=== PATIENT | male | born 1955 | race African-American/Black ===

== ENCOUNTER 2017-05-06 17:50 | Emergency (ER) | payer MEDICAID ==
--- NOTE | 2017-05-06 20:44 | ED Physician Documentation ---
History of Present Illness - Stated complaint Stated Complaint: DIZZY - Chief complaint Chief Complaint: Neuro - History obtained from History obtained from: Patient - History of Present Illness Timing: How many days ago (2) Pain level max: 0 Pain level now: 0 Improved by: rest, lying still Worsened by: no apparent inciting or exacerbating factors; sometimes comes on with ambulating, or the action of standing or sitting, but not enough that it seems clearly causative. Episodes occur as often at rest Review of Systems Constitutional: denies: Fever Eyes: reports: Reviewed and negative Ears: reports: Reviewed and negative Cardiac: reports: Reviewed and negative Respiratory: reports: Reviewed and negative GI: reports: Reviewed and negative Neurologic: reports: Reviewed and negative PD PAST MEDICAL HISTORY - Past Medical History Past Medical History: Yes Cardiovascular: High cholesterol Endocrine/Autoimmune: Type 2 diabetes - Past Surgical History Past Surgical History: Yes Ortho: Knee replacement - Present Medications Home Medications: Ambulatory Orders Medication Instructions Recorded Confirmed Aspirin 81 mg PO DAILY 05/06/17 05/06/17 Atorvastatin [Lipitor] 80 mg PO DAILY 05/06/17 05/06/17 Insulin Aspart [NovoLOG] 100 units SQ 05/06/17 Lisinopril/Hydrochlorothiazide 1 tab PO DAILY 05/06/17 05/06/17 [Lisinopril-Hctz 20-25 mg Tab] Meclizine HCl 12.5 - 25 mg PO Q6HR PRN #20 tablet 05/06/17 Tujeo 35 units SQ DAILY PM 05/06/17 - Allergies Allergies/Adverse Reactions: Allergies Allergy/AdvReac Type Severity Reaction Status Date / Time metformin AdvReac Unknown Verified 05/06/17 17:59 - Social History Does the pt smoke?: No Smoking Status: Never smoker Does the pt drink ETOH?: Yes ETOH Use: Wine Does the pt have substance abuse?: No - Immunizations Immunizations are current?: Yes - POLST Patient has POLST: No PD ED PE NORMAL - Vitals Vital signs reviewed: Yes - General General: Alert and oriented X 3, No acute distress, Well developed/nourished - HEENT HEENT: PERRL, EOMI, Moist mucous membranes - Neck Neck: Supple, no meningeal sign - Cardiac Cardiac: RRR, No murmur - Respiratory Respiratory: No respiratory distress, Clear bilaterally - Abdomen Abdomen: Soft, Non tender - Neuro Neuro: Alert and oriented X 3, processing technician 2-12 intact, No motor deficit (5/5 biateral check totaler, dorsi/plantarflexion), No sensory deficit, Normal speech, Other (2+/4 bilateral DTR (patella, bicep). ) Results - Vitals Vitals: Vital Signs - 24 hr 05/06/17 05/06/17 05/06/17 17:55 19:40 20:47 Temperature 36.7 C Heart Rate 78 75 96 Respiratory 16 18 16 Rate Blood Pressure 133/81 H 135/90 H 157/95 H O2 Saturation 99 100 97 05/06/17 21:49 Temperature Heart Rate 77 Respiratory 17 Rate Blood Pressure 139/85 H O2 Saturation 100 Oxygen O2 Source Room air - EKG (time done) No standard instances Rate: Rate (enter#) (77) Rhythm: NSR [place]: LAD Intervals: Normal [place] QRS: Normal Ischemia: Normal ST segments, Q waves (III, aVF) - Labs Labs: Laboratory Tests 05/06/17 05/06/17 21:05 21:05 WBC 6.2 RBC 4.94 Hgb 14.7 Hct 44.2 MCV 89.4 MCH 29.7 MCHC 33.2 RDW 14.5 Plt Count 190 MPV 9.0 Neut # 3.2 Lymph # 2.2 [place] # 0.6 Eos # 0.1 Baso # 0.0 Absolute Nucleated RBC 0.00 Nucleated RBCs 0.0 Sodium 138 Potassium 3.6 Chloride 102 Carbon Dioxide 29 Anion Gap 7.0 BUN 15 Creatinine 1.2 Estimated GFR (MDRD) 75 L Glucose 172 H Calcium 9.7 - Rads (name of study) CT head Radiology: Prelim report reviewed, See rad report PD MEDICAL DECISION MAKING - ED course Complexity details: reviewed results, re-evaluated patient, considered differential, d/w patient Departure - Departure Disposition: 01 Home, Self Care Clinical Impression: Dizziness Condition: Good Instructions: ED Dizziness [facility] Follow-Up: NOHELIA LITTLE MD [Primary Care Provider] - Prescriptions: Meclizine HCl 12.5 - 25 mg PO Q6HR PRN #20 tablet PRN Reason: Vertigo Discharge Date/Time: 05/06/17 22:18
[2017-05-06] MEDS ORDERED: MECLIZINE 12.5 MG TABLET PO STA (21:04)
[2017-05-06 21:14] LABS: BASOPHILS % (AUTO) 0.8 %; EOSINOPHILS # (AUTO) 0.1 10^3/uL (0.0-0.7); EOSINOPHILS % (AUTO) 2.4 %; HCT - HEMATOCRIT 44.2 % (42.0-52.0); HGB - HEMOGLOBIN 14.7 g/dL (14.0-18.0); LYMPHOCYTES # (AUTO) 2.2 10^3/uL (1.5-3.5); LYMPHOCYTES % (AUTO) 35.1 %; MEAN CORPUSCULAR HEMOGLOBIN 29.7 pg (27.0-31.0); MEAN CORPUSCULAR HGB CONC 33.2 g/dL (32.0-36.0); MEAN CORPUSCULAR VOLUME 89.4 fL (80.0-94.0); MONOCYTES # (AUTO) 0.6 10^3/uL (0.0-1.0); MONOCYTES % (AUTO) 9.5 %; NEUTROPHILS # (AUTO) 3.2 10^3/uL (1.5-6.6); NEUTROPHILS % (AUTO) 52.2 %; RED BLOOD COUNT 4.94 10^6/uL (4.70-6.10); RED CELL DISTRIBUTION WIDTH 14.5 % (12.0-15.0); UNCORRECTED WHITE BLOOD COUNT 6.2 x10^3/uL; WHITE BLOOD COUNT 6.2 x10^3/uL (4.8-10.8)
[2017-05-06 21:20] LABS: CALCIUM 9.7 mg/dL (8.5-10.3); CREATININE 1.2 mg/dL (0.6-1.2); POTASSIUM 3.6 mmol/L (3.5-5.0)
[2017-05-06] MEDS ORDERED: MECLIZINE 12.5 MG TABLET PO ONE (21:20)
--- NOTE | 2017-05-06 21:47 | CT Preliminary Report ---
Exam: CT Head W/O IMPRESSION: Normal head CT. [facility] SITE ID: [id number]
[2017-05-06 21:52] VITALS: BP 139/85
--- NOTE | 2017-05-06 21:58 | CT Report ---
EXAM: CT HEAD EXAM DATE: 05/06/2017 09:24 PM. CLINICAL HISTORY: Dizziness. COMPARISON: None. TECHNIQUE: Multiaxial CT images were obtained from the foramen magnum to the vertex. IV contrast: Non e. Reformats: Coronal. In accordance with CT protocol optimization, one or more of the following dose reduction techniques w ere utilized for this exam: automated exposure control, adjustment of mA and/or KV based on patient s ize, or use of iterative reconstructive technique. FINDINGS: Parenchyma: No intraparenchymal hemorrhage. No evidence of mass, midline shift, or CT findings of inf arction. Still-white differentiation is distinct. Extraaxial Spaces: Normal for age. No subdural or epidural collections identified. Ventricles: Normal in size and position. Sinuses: Imaged paranasal sinuses, orbits, and mastoids show no significant abnormality. Bones: No evidence of fracture or calvarial defect. Other: None. IMPRESSION: Normal head CT. [facility] Referring Provider Line: [phone] SITE ID: [id number]
== END 2017-05-06 22:18 | disposition home or self-care (01) ==
LOC: ED 17:50
DX: R42 Dizziness and giddiness (principal); E78.00 Pure hypercholesterolemia, unspecified; E11.9 Type 2 diabetes mellitus without complications; Z79.4 Long term (current) use of insulin; Z79.82 Long term (current) use of aspirin
CPT/HCPCS: 36415; 70450; 80048; 85025; 93005; 99283; 99284; A9270

== ENCOUNTER 2017-07-03 08:50 | Emergency (ER) | payer MEDICAID ==
[2017-07-03 08:57] VITALS: BP 164/92
[2017-07-03] MEDS ORDERED: DEXAMETHASONE 10 MG/ML VIAL PO STA (09:40)
--- NOTE | 2017-07-03 09:42 | ED Physician Documentation ---
History of Present Illness - Stated complaint Stated Complaint: L FOOT PX - Chief complaint Chief Complaint: Ext Problem - History obtained from History obtained from: Patient - History of Present Illness Timing: Last night - Additonal information Additional information: 61-year-old diabetic male with a history of gout has recently taken a plane trip and arrived in back in [place] at 2 AM and spent the night pacing in a hotel lobby. He states that he developed pain in the ball of the foot on the left side. This was severe lancinating pain with a background pain as well. He states the pain was so severe that the only relief he got was when he was up and walking around. He noted the foot to be itchy and noted that if he scratched it he got temporary relief of his pain. He did not have any blistering of his foot or any erythema or swelling. He did not injure the foot itself. He has had gout previously and he recognizes gout as an exquisite pain as opposed to a lancinating pain and he has no pain to movement of the joint and no swelling of the joint. He has had a cough and sore throat which is developed over the past week and he states the cough has been severe at times. He has had sweats but no fever. Review of Systems Constitutional: reports: Myalgias, Fatigue, Sweats. denies: Fever Eyes: denies: Decreased vision Ears: denies: Ear pain Nose: reports: Rhinorrhea / runny nose, Congestion Throat: reports: Sore throat Cardiac: denies: Chest pain / pressure, Palpitations Respiratory: reports: Cough. denies: Dyspnea GI: denies: Abdominal Pain, Nausea, Vomiting : denies: Dysuria, Frequency Skin: denies: Rash Musculoskeletal: reports: Extremity pain, Joint pain. denies: Neck pain, Back pain, Extremity swelling, Joint swelling, Pain with weight bearing Neurologic: denies: Generalized weakness, Focal weakness, Numbness PD PAST MEDICAL HISTORY - Past Medical History Past Medical History: Yes Cardiovascular: Hypertension, High cholesterol Endocrine/Autoimmune: Type 2 diabetes - Past Surgical History Past Surgical History: Yes Ortho: Knee replacement - Present Medications Home Medications: Ambulatory Orders Medication Instructions Recorded Confirmed Aspirin 81 mg PO DAILY 05/06/17 07/03/17 Atorvastatin [Lipitor] 80 mg PO DAILY 05/06/17 07/03/17 Insulin Aspart [NovoLOG] 100 units SQ DAILY 05/06/17 07/03/17 Lisinopril/Hydrochlorothiazide 1 tab PO DAILY 05/06/17 07/03/17 [Lisinopril-Hctz 20-25 mg Tab] Tujeo 35 units SQ DAILY PM 05/06/17 07/03/17 Azithromycin [Zithromax] 250 mg PO DAILY #6 tablet 07/03/17 Gabapentin [Neurontin] 100 mg PO TID PRN #30 capsule 07/03/17 - Allergies Allergies/Adverse Reactions: Allergies Allergy/AdvReac Type Severity Reaction Status Date / Time metformin AdvReac Unknown Verified 05/06/17 17:59 - Social History Does the pt smoke?: No Smoking Status: Never smoker Does the pt drink ETOH?: Yes Does the pt have substance abuse?: No - Immunizations Immunizations are current?: Yes - POLST Patient has POLST: No PD ED PE NORMAL - Vitals Vital signs reviewed: Yes (Hypertensive) - General General: Alert and oriented X 3, No acute distress, Well developed/nourished - HEENT HEENT: Atraumatic, PERRL, EOMI, Other (both TM's are erythematous with rounding of the landmarks. The pharynx is with mild swelling and erythema) - Neck Neck: Supple, no meningeal sign, No bony TTP - Cardiac Cardiac: RRR, No murmur - Respiratory Respiratory: No respiratory distress, Clear bilaterally - Abdomen Abdomen: Soft, Non tender - Back Back: No CVA TTP, No spinal TTP - Derm Derm: Normal color, Warm and dry, No rash - Extremities Extremities: No deformity, No tenderness to palpate, Normal ROM s pain, No edema , No calf tenderness / cord, Other (There is no erythema or swelling in the foot or ankle. There is no tenderness on exam this morning. ) - Neuro Neuro: Alert and oriented X 3, No motor deficit, No sensory deficit, Normal speech - Psych Psych: Normal mood, Normal affect Results - Vitals Vitals: Vital Signs - 24 hr 07/03/17 08:55 Temperature 37.0 C Heart Rate 84 Respiratory 18 Rate Blood Pressure 164/92 H O2 Saturation 97 Oxygen O2 Source Room air PD MEDICAL DECISION MAKING - ED course Complexity details: reviewed old records, reviewed results, re-evaluated patient , considered differential, d/w patient, d/w family ED course: 61-year-old diabetic male has developed severe left foot pain that I suspect may be related to sciatica. At the time of evaluation in the emergency department patient is sitting on the gurney and is pain-free. He is quite surprised that his pain is completely resolved and has not come back in the time that he has been here. In route to the hospital he was in agonizing pain.On examination today he does appear to have otitis media and he has had a cough for the past week. I suspect that this may exacerbate any symptoms that he is having but I do suspect that this is related to sciatica. Departure - Departure Disposition: Home, Self Care Clinical Impression: Sciatica Qualifiers: Laterality: left Qualified Code(s): M54.32 - Sciatica, left side Otitis media Qualifiers: Otitis media type: suppurative Chronicity: acute Laterality: bilateral Recurrence: not specified as recurrent Spontaneous tympanic membrane rupture: without spontaneous rupture Qualified Code(s): H66.003 - Acute suppurative otitis media without spontaneous rupture of ear drum, bilateral Condition: Stable Instructions: ED Sciatica, ED Otitis Media Acute Adult Follow-Up: NOHELIA LITTLE MD [Primary Care Provider] - Prescriptions: Gabapentin [Neurontin] 100 mg PO TID PRN #30 capsule PRN Reason: Pain Azithromycin [Zithromax] 250 mg PO DAILY #6 tablet
[2017-07-03] MEDS ORDERED: CHERRY SYRUP 10 ML UDC PO ONE (09:46)
[2017-07-03] MEDS ORDERED: DEXAMETHASONE 10 MG/ML VIAL ONE (09:46)
== END 2017-07-03 10:08 | disposition home or self-care (01) ==
LOC: ED 08:50
DX: M54.32 Sciatica, left side (principal); H66.003 Acute suppurative otitis media without spontaneous rupture of ear drum, bilateral; I10 Essential (primary) hypertension; M10.9 Gout, unspecified; E78.00 Pure hypercholesterolemia, unspecified; E11.9 Type 2 diabetes mellitus without complications; Z79.4 Long term (current) use of insulin; Z79.82 Long term (current) use of aspirin
CPT/HCPCS: 99283; 99284; A9270

== ENCOUNTER 2021-02-02 15:06 | Emergency (ER) | payer MEDICARE, BC ==
[2021-02-02] MEDS ORDERED: MORPHINE 10 MG/ML VIAL IM STA (15:19)
--- NOTE | 2021-02-02 15:22 | ED Physician Documentation ---
PD HPI UPPER EXT INJURY - Stated complaint Stated Complaint: ITCHING PX IN LEFT FOOT - Chief complaint Chief Complaint: Ext Problem - History obtained from History obtained from: Patient - Additonal information Additional information: For the last 2 days this 65-year-old gentleman has had intermittent severe itching type pain in the left first MTP. It lasts only about a second at a time and comes maybe every minutes. Then he will have interludes of being pain-free. He denies fevers, chills, body aches, recent travel. He states he has a history of gout but this is different. Last A1c was 6.8. Review of Systems Constitutional: denies: Fever, Chills Cardiac: reports: Reviewed and negative Respiratory: reports: Reviewed and negative PD PAST MEDICAL HISTORY - Past Medical History Cardiovascular: Hypertension, High cholesterol Endocrine/Autoimmune: Type 2 diabetes - Past Surgical History Past Surgical History: Yes Ortho: Knee replacement - Present Medications Home Medications: Ambulatory Orders Medication Instructions Recorded Confirmed Aspirin 81 mg PO DAILY 05/06/17 02/02/21 Atorvastatin [Lipitor] 80 mg PO DAILY 05/06/17 02/02/21 Insulin Aspart [NovoLOG] 100 units SQ DAILY 05/06/17 02/02/21 Lisinopril/Hydrochlorothiazide 1 tab PO DAILY 05/06/17 02/02/21 [Lisinopril-Hctz 20-25 mg Tab] Gabapentin [Neurontin] 100 mg PO TID PRN #30 capsule 07/03/17 02/02/21 Oxycodone HCl/Acetaminophen 1 - 2 each PO Q6H PRN #14 tablet 02/02/21 [Percocet 5-325 mg Tablet] - Allergies Allergies/Adverse Reactions: Allergies Allergy/AdvReac Type Severity Reaction Status Date / Time metformin AdvReac Unknown Verified 02/02/21 15:20 - Social History Does the pt smoke?: No Smoking Status: Never smoker Does the pt drink ETOH?: Yes Does the pt have substance abuse?: No - Immunizations Immunizations are current?: Yes - POLST Patient has POLST: No PD ED PE NORMAL - Vitals Vital signs reviewed: Yes - General General: Alert and oriented X 3 - Extremities Extremities: Other (About every minute he winces in pain, it only lasts for a second. He points to the left first MTP as the site of his pain. Examination there shows excellent pedal pulses, no warmth, redness, deformity, or tenderness.) - Neuro Neuro: Alert and oriented X 3, Normal speech Results - Vitals Vitals: Vital Signs - 24 hr 02/02/21 02/02/21 02/02/21 15:16 16:48 17:33 Temperature 36.9 C 36.7 C Heart Rate 86 81 63 Respiratory 16 16 Rate Blood Pressure 155/87 H 155/86 H 149/83 H O2 Saturation 99 94 Oxygen O2 Source Room air - Labs Labs: Laboratory Tests 02/02/21 02/02/21 15:26 15:26 WBC 4.8 RBC 4.63 L Hgb 14.1 Hct 42.0 MCV 90.7 MCH 30.5 MCHC 33.6 RDW 13.1 Plt Count 171 MPV 10.6 Neut # (Auto) 2.2 Lymph # (Auto) 1.9 [place] # (Auto) 0.5 Eos # (Auto) 0.1 Baso # (Auto) 0.0 Absolute Nucleated RBC 0.00 Nucleated RBC % 0.0 Sodium 138 Potassium 3.6 Chloride 101 Carbon Dioxide 29 Anion Gap 8.0 BUN 15 Creatinine 1.1 Estimated GFR (MDRD) 81 L Glucose 153 H Uric Acid 6.8 Calcium 9.3 - Rads (name of study) L foot XR Radiology: EMP read contemporaneously (Chronic remodeling of the second through fifth metatarsals. No osseous abnormality acutely. Calcaneal spurring at the plantar fascial and Achilles insertions. Diffuse vascular calcifications.) Procedures - Regional nerve block Nerve block site: Other (Left deep peroneal vein was anesthetized using a dorsal approach just lateral to the DP pulse with 3 mL of 0.5% ropivacaine with excellent pain relief.) PD MEDICAL DECISION MAKING - ED course ED course: 65-year-old gentleman has acute pain in the left foot in the area of the first MTP. The intermittent nature of it and exam are not consistent with gout. There is no evidence of ischemia. He had partial management of his pain with IM narcotics and Toradol here but had complete relief with a deep peroneal nerve block. Departure - Departure Disposition: 01 Home, Self Care Clinical Impression: Left foot pain Diabetes mellitus Qualifiers: Diabetes mellitus type: type 2 Condition: Good Record reviewed to determine appropriate education?: Yes Instructions: ED Acute Pain [facility] Prescriptions: Oxycodone HCl/Acetaminophen [Percocet 5-325 mg Tablet] 1 - 2 each PO Q6H PRN #14 tablet PRN Reason: pain Comments: Return if worsening. Followup with your PCP and consider endocrinology and neurology referral. Discharge Date/Time: 02/02/21 17:38
[2021-02-02 15:30] LABS: BASOPHILS % (AUTO) 0.6 %; EOSINOPHILS # (AUTO) 0.1 10^3/uL (0.0-0.7); EOSINOPHILS % (AUTO) 2.5 %; HGB - HEMOGLOBIN 14.1 g/dL (14.0-18.0); LYMPHOCYTES # (AUTO) 1.9 10^3/uL (1.5-3.5); LYMPHOCYTES % (AUTO) 39.3 %; MEAN CORPUSCULAR HEMOGLOBIN 30.5 pg (27.0-31.0); MEAN CORPUSCULAR HGB CONC 33.6 g/dL (32.0-36.0); MEAN CORPUSCULAR VOLUME 90.7 fL (80.0-94.0); MEAN PLATELET VOLUME 10.6 fL (7.4-11.4); MONOCYTES # (AUTO) 0.5 10^3/uL (0.0-1.0); MONOCYTES % (AUTO) 11.1 %; NEUTROPHILS # (AUTO) 2.2 10^3/uL (1.5-6.6); NEUTROPHILS % (AUTO) 46.3 %; PLT - PLATELET COUNT 171 10^3/uL (130-450); RED BLOOD COUNT 4.63 10^6/uL (4.70-6.10); RED CELL DISTRIBUTION WIDTH 13.1 % (12.0-15.0); WHITE BLOOD COUNT 4.8 x10^3/uL (4.8-10.8)
--- OUTSIDE RECORDS SUMMARY | 2021-02-02 15:42 | EXTERNAL MEDICAL SUMMARY RPT | Continuity of Care Document ---
:1955 Demographics Phone Unavailable Preferred Language Unknown Marital Status Unknown Yarsanism Affiliation Unknown Race Unknown Ethnic Group Unknown Author Organization [facility] Address [address] [id number] Phone Social History date description facility [phone]
[2021-02-02 15:43] LABS: CALCIUM 9.3 mg/dL (8.5-10.3); CREATININE 1.1 mg/dL (0.6-1.2); POTASSIUM 3.6 mmol/L (3.5-5.0); URIC ACID 6.8 mg/dL (2.6-7.2)
--- NOTE | 2021-02-02 15:55 | XRAY Report ---
PROCEDURE: Foot 3 View LT INDICATIONS: Foot pain TECHNIQUE: 3 views of the foot were acquired. COMPARISON: None FINDINGS: Bones: There is no acute fracture or dislocation. Marked smooth periosteal reaction adjacent to the s econd through fourth metatarsal diaphysis is noted. Joint spacing is maintained. Soft tissues: No ankle joint effusion. Diffuse vascular calcifications throughout the ankle and foot. Enthesophyte formation at the Achilles and plantar fascial insertions of the calcaneus. IMPRESSION: No acute osseous abnormality. Findings suggestive of chronic remodeling of the second through fifth fourth metatarsals. Calcaneal spurring at the plantar fascial and Achilles insertions. Diffuse vascular calcifications throughout the ankle and foot. Recommend correlation for diabetes. Reviewed by: Broderick Orozco DO on 02/02/2021 2:54 PM [facility] Approved by: Broderick Orozco DO on 02/02/2021 2:54 PM [facility] Station ID: [id number]
[2021-02-02] MEDS ORDERED: HYDROmorphone 1 MG/ML CARPUJECT IVP STA (16:02)
[2021-02-02] MEDS ORDERED: KETOROLAC 60 MG/2 ML VIAL IM STA (16:02)
[2021-02-02] MEDS ORDERED: HYDROmorphone 1 MG/ML CARPUJECT IM STA (16:30)
[2021-02-02] MEDS ORDERED: ROPIVACAINE 0.5% PF 20 ML AMPULE SUBQ STA (16:47)
[2021-02-02] MEDS ORDERED: oxyCODONE/ACET 5/325 Prepack 4 PO STA (17:23)
[2021-02-02 17:34] VITALS: BP 149/83
== END 2021-02-02 17:38 | disposition home or self-care (01) ==
LOC: ED 15:06
DX: M79.672 Pain in left foot (principal); M77.32 Calcaneal spur, left foot; E11.9 Type 2 diabetes mellitus without complications; Z79.4 Long term (current) use of insulin; I10 Essential (primary) hypertension; Z79.82 Long term (current) use of aspirin
CPT/HCPCS: 36415; 64450; 73630; 80048; 84550; 85025; 96372; 99283; 99284; J1170

== ENCOUNTER 2023-12-30 14:47 | Emergency (ER) | payer MEDICARE, BC ==
[2023-12-30 15:30] LABS: EOSINOPHILS # (AUTO) 0.1 10^3/uL (0.0-0.7); EOSINOPHILS % (AUTO) 3.1 %; HCT - HEMATOCRIT 46.1 % (42.0-52.0); HGB - HEMOGLOBIN 14.7 g/dL (14.0-18.0); LYMPHOCYTES # (AUTO) 1.6 10^3/uL (1.5-3.5); LYMPHOCYTES % (AUTO) 40.2 %; MEAN CORPUSCULAR HEMOGLOBIN 29.5 pg (27.0-31.0); MEAN CORPUSCULAR HGB CONC 31.9 g/dL (32.0-36.0); MEAN CORPUSCULAR VOLUME 92.4 fL (80.0-94.0); MEAN PLATELET VOLUME 10.3 fL (7.4-11.4); MONOCYTES # (AUTO) 0.3 10^3/uL (0.0-1.0); MONOCYTES % (AUTO) 8.8 %; NEUTROPHILS # (AUTO) 1.8 10^3/uL (1.5-6.6); NEUTROPHILS % (AUTO) 46.6 %; PLT - PLATELET COUNT 177 10^3/uL (130-450); RED BLOOD COUNT 4.99 10^6/uL (4.70-6.10); RED CELL DISTRIBUTION WIDTH 13.6 % (12.0-15.0); WHITE BLOOD COUNT 3.9 x10^3/uL (4.8-10.8)
[2023-12-30 15:49] LABS: ALBUMIN 4.7 g/dL (3.2-5.5); ALBUMIN/GLOBULIN RATIO 1.6 (1.0-2.2); BILIRUBIN,TOTAL 1.1 mg/dL (0.2-1.0); CALCIUM 9.8 mg/dL (8.5-10.3); CREATININE 1.2 mg/dL (0.6-1.3); POTASSIUM 3.8 mmol/L (3.5-4.5); TOTAL PROTEIN 7.7 g/dL (6.4-8.9)
[2023-12-30 15:50] LABS: TROPONIN I HIGH SENSITIVITY 5.5 ng/L (2.3-19.7)
--- NOTE | 2023-12-30 16:23 | ED Physician Documentation ---
History of Present Illness - Stated complaint Stated Complaint: CHEST PX,JAW SENSATION - Chief complaint Chief Complaint: Cardiac - History obtained from History obtained from: Patient - Additonal information Additional information: The pt comes to the ED with CC of episodes of CP over the past several days. He states that they last for a few minutes usually, and then go away. No nausea, dyspnea, diaphoresis, or lightheadedness. Sometimes he feels the pain in his shoulders, too. The pt presented to the [facility] today, because he had an episode that lasted longer (about 1 hour) with a "numb" sensation in his jaw while exerting himself. He does note that he kept on exerting himself, and the sx ultimately went away. He states he still did not have any other sx, and the episode has completely resolved now. The [facility] was worried, and sent him here. The pt has no known h/o CAD. He is not a smoker, but has a h/o HTN, DM, and hyperlipidemia. No stress test recently, but pt does walk regularly with no sx. The pt states he is leaving for a trip to [place] at 0700 tomorrow, and just wants to make sure everything is okay before he goes. PD PAST MEDICAL HISTORY - Past Medical History Past Medical History: Yes Cardiovascular: Hypertension, High cholesterol Endocrine/Autoimmune: Type 2 diabetes - Past Surgical History Past Surgical History: Yes Ortho: Knee replacement - Present Medications Home Medications: Ambulatory Orders Medication Instructions Recorded Confirmed Aspirin 81 mg PO DAILY 05/06/17 02/02/21 Atorvastatin [Lipitor] 80 mg PO DAILY 05/06/17 02/02/21 Insulin Aspart [NovoLOG] 100 units SQ DAILY 05/06/17 02/02/21 Lisinopril/Hydrochlorothiazide 1 tab PO DAILY 05/06/17 02/02/21 [Lisinopril-Hctz 20-25 mg Tab] Gabapentin [Neurontin] 100 mg PO TID PRN #30 capsule 07/03/17 02/02/21 Oxycodone HCl/Acetaminophen 1 - 2 each PO Q6H PRN #14 tablet 02/02/21 [Percocet 5-325 mg Tablet] Nitroglycerin [Nitrostat] 0.4 mg SL Q5MIN PRN #25 tablet 12/30/23 - Allergies Allergies/Adverse Reactions: Allergies Allergy/AdvReac Type Severity Reaction Status Date / Time adhesive Allergy Hives Verified 12/30/23 14:58 metformin AdvReac Unknown Verified 02/02/21 15:20 - Social History Does the pt smoke?: No Smoking Status: Never smoker Does the pt drink ETOH?: Yes Does the pt have substance abuse?: No - Immunizations Immunizations are current?: Yes - POLST Patient has POLST: No PD ED PE NORMAL - Vitals Vital signs reviewed: Yes - General General: Alert and oriented X 3, No acute distress, Well developed/nourished - HEENT HEENT: Atraumatic, PERRL, EOMI, Moist mucous membranes - Neck Neck: Supple, no meningeal sign - Cardiac Cardiac: RRR, No murmur, Strong equal pulses - Respiratory Respiratory: No respiratory distress, Clear bilaterally - Abdomen Abdomen: Soft, Non tender, Non distended - Derm Derm: Normal color, Warm and dry, No rash - Extremities Extremities: No deformity, No edema - Neuro Neuro: Alert and oriented X 3, tourist agent 2-12 intact, Normal speech - Psych Psych: Normal mood, Normal affect Results - Vitals Vitals: Oxygen O2 Source Room air - EKG (time done) 1503 EKG releavant findings:: EKG personally interpreted by author of this note. Relevant findings are: Rate: Rate (enter#) (67) Rhythm: NSR [place]: Normal Intervals: Normal [place] QRS: Normal Ischemia: Normal ST segments Compare to prior EKG: Old EKG unavailable Computer interpretation: Agree with computer - Labs Labs: Laboratory Tests 12/30/23 12/30/23 12/30/23 15:20 15:20 18:05 WBC 3.9 L RBC 4.99 Hgb 14.7 Hct 46.1 MCV 92.4 MCH 29.5 MCHC 31.9 L RDW 13.6 Plt Count 177 MPV 10.3 Neut # (Auto) 1.8 Lymph # (Auto) 1.6 [place] # (Auto) 0.3 Eos # (Auto) 0.1 Baso # (Auto) 0.0 Absolute Nucleated RBC 0.00 Nucleated RBC % 0.0 Sodium 138 Potassium 3.8 Chloride 102 Carbon Dioxide 32 Anion Gap 4.0 L BUN 20 Creatinine 1.2 Estimated GFR (MDRD) 73 L Glucose 95 Calcium 9.8 Total Bilirubin 1.1 H AST 29 ALT 23 Alkaline Phosphatase 57 Troponin I High Sens 5.5 5.3 Total Protein 7.7 Albumin 4.7 Globulin 3.0 Albumin/Globulin Ratio 1.6 Lipase 47 PD Medical Decision Making - ED course Complexity details: reviewed results, re-evaluated patient, considered differential, d/w patient ED course: The pt was asymptomatic by the time of his presentation to the ED, but given his age and medical history, I was very concerned for undiagnosed CAD and unstable angina. I articulated this to the pt, who stated he was willing to get worked up in the ED, but was firm on going to [place] in the morning. I clarified my concerns in further detail, but the pt was cordially adamant, and so work-up was ordered, including CBC, ER abd panel, serial troponins, and EKG. The EKG was completely normal, and troponins were also well within normal limits, with no ri se. The pt's vital signs were normal. The pt was given a dose of Lovenox in the ED. He had already had an aspirin today, and was on this and lisinopril as an outpatient. I sat down with the pt and spoke earnestly with him about his high-risk situation, and in particular, the danger of getting on a long-haul flight and [place] without further investigation into this situation and treatment for potential unstable angina until proven otherwise. I have advised him that he could on the plane before getting to [place], or he could be unable to access the care he needs and or sustain permanent and devastating damage to his health. The pt expressed complete understanding, but stated he was not wanting to cancel his travel plans, and would deal with any situation if or when it arose. As such, I prepared AMA paperwork for the pt outlining the above discussion. I have prescribed nitroglycerin for the pt to take with him on his trip, so that he can at least have something in case he develops chest pain en-route. We have discussed the need to figure out in advance where the best hospitals are in the areas where he will be, should he need services in the month that he is abroad. The pt has stated that he has very good travel insurance with [employer] capabilities if he needs. I have urged him to come back if he changes his mind before leaving. The pt expresses understanding, and has signed out against medical advice. Departure - Departure Disposition: 07 Against Medical Advice Clinical Impression: Unstable angina Chest pain Qualifiers: Chest pain type: unspecified Qualified Code(s): R07.9 - Chest pain, unspecified Condition: Stable Instructions: Angina Dc Prescriptions: Nitroglycerin [Nitrostat] 0.4 mg SL Q5MIN PRN #25 tablet PRN Reason: Chest Pain Comments: Your cardiac workup is negative tonight. However, the pattern of your recent chest pain, including the jaw discomfort is concerning for a possible condition called unstable angina, where you have blockages in your coronary arteries that have become significantly worse and are causing increasing obstruction to critical blood flow to your heart muscle. This condition puts you at high risk for a "heart attack". Heart attacks can lead to loss of cardiac function, congestive heart failure, unstable heart rhythms, Permanent disability, and . The standard of care is to admit you to the hospital under the care of a lithographing machine operator for this, with IV blood thinners and other medications to keep you from having a heart attack. While in the hospital, lithographing machine operator generally offer an angiogram, where dye is injected into your coronary artery network and they can identify any blockages. While it is possible that there is another cause of your chest pain, you have a number of significant cardiac risk factors, including diabetes, high blood pressure, elevated cholesterol, and age. We have discussed the seriousness of this condition and that the absolute preference is for you to stay in the hospital to have further testing to determine whether this potentially life-threatening condition is present. However, you have stated your preference to hold off on this for now. Although we will have to have you sign out AGAINST MEDICAL ADVICE, I have prescribed nitroglycerin for you and strongly advise you to pick this up prior to leaving on your flight tomorrow so that you have it on hand, should you develop chest pain or other symptoms potentially concerning for a cardiac event. If you develop symptoms while inflight and are not able to resolve them with the nitroglycerin, or if you are in [place] and develop symptoms, please seek immediate assistance, preferably at one of the exp hospitals. Forms: PCP List Discharge Date/Time: 12/30/23 19:49
[2023-12-30 17:35] VITALS: O2SAT 100
[2023-12-30] MEDS: ENOXAPARIN 100 MG/ML SYRINGE SUBQ STA (18:34)
[2023-12-30 19:16] VITALS: BP 140/107
== END 2023-12-30 19:49 | disposition left against medical advice (07) ==
LOC: ED 14:47
DX: I20.0 Unstable angina (principal); I10 Essential (primary) hypertension; E11.9 Type 2 diabetes mellitus without complications; Z79.4 Long term (current) use of insulin
CPT/HCPCS: 36415; 80053; 83690; 84484; 85025; 93005; 96372; 99283; 99284; J1650